=== PATIENT | female | born 1945 | race Caucasian/White ===

== ENCOUNTER 2016-09-18 13:30 | Inpatient (IN) | payer OTHER ==
[~2016-09-18] VITALS: Ht 172 cm; Wt 106.2 kg
--- NOTE | ~2016-09-18 | HC ---
[facility] Lesly [place] [address] CONSULTATION Name: IRISERICH K Room #: 206-P [facility] IN M.R.#: [id number] Admission: 09/18/16 Attend Phys: Nathan Kerr DO Discharge: 09/23/16 Date of : 49 Report #: [id number] THIS REPORT FOR: //name// CC: Yulissa Capellanore Flores DATE OF SERVICE: 09/18/2016 REFERRING PROVIDER: Dr. Jenelle Dorantes. REASON FOR CONSULTATION: Pneumonia. CHIEF COMPLAINT: Shortness of breath. HISTORY OF PRESENT ILLNESS: Our group was asked to see the patient while hospitalized at [facility]. A very pleasant 71-year-old woman with a past pulmonary history she states for COPD, although has negligible symptoms. She states she is able to tolerate riding her stationary bike without any significant dyspnea. Has no chronic cough or congestion. Has no chronic inhaled therapy, quit smoking about 6-7 years ago, had been having some symptoms for the last 6-8 weeks of cough with some sputum production. No hemoptysis. Denied any fevers, chills or sweats. She had some intermittent hoarseness to her voice. Sought care with her primary care provider, was advised it is likely viral and was put on no antimicrobial therapy initially when the patient's symptoms persists despite conservative management with over the counter medication. She was placed on azithromycin course as well as the Medrol Dosepak. Symptoms initially improved, but then recurred and had been persistent. She also has had some orthopnea the past 2 days. No fevers, chills or sweats. In the emergency department, chest x-ray was clear as has been recent past x-rays, however, CT scan of the chest to evaluate for PE did reveal some nodular right greater than left upper lobe infiltrates and has now been on Rocephin and azithromycin as well as systemic steroids, feeling modestly improved. Continues to have some loose cough. No recent travel. No environmental exposures. No animals at home. Otherwise remains reasonably clear. ALLERGIES: Include REMICAINE and PENICILLIN. PAST MEDICAL HISTORY: 1. Anemia. 2. Bovine aortic valve replacement in 2014. 3. Diabetes mellitus type 2. 4. Psoriatic arthritis. 5. History of bilateral cataract surgery. 6. Hypertension. [address] [address] CONSULTATION Name: IRISJOYCEERICH K Room #: 206-[facility]..#: [id number] Admission: 09/18/16 Attend Phys: Nathan Kerr DO Discharge: 09/23/16 Date of : 49 Report #: [id number] 7. Hyperlipidemia. 8. Prior history of hysterectomy. 9. COPD, severity not quantified, however, the patient states she is asymptomatic. 10. Gout. OUTPATIENT MEDICATIONS: Include Alogliptin, simvastatin, clobetasol, Amaryl, insulin, p.r.n. albuterol, aspirin, metformin, Lasix, losartan, allopurinol. SOCIAL HISTORY: Ex-smoker, quitting several years ago. No significant alcohol consumption, lives alone. 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 FAMILY HISTORY: Negative for any significant pulmonary disease. REVIEW OF SYSTEMS: CONSTITUTIONAL: No fevers, chills or sweats. ENT: No upper respiratory congestion, rhinorrhea or dysphagia. CARDIOVASCULAR: No chest pains, palpitations, known history of aortic valve replacement. GASTROINTESTINAL: No nausea, vomiting, diarrhea, constipation, abdominal pain. No reflux. GENITOURINARY: No dysuria, no frequency. INTEGUMENT: Denies any new rash. MUSCULOSKELETAL: Chronic osteoarthritis pain and prior right total knee arthroplasty, complaints of left pain which may require total knee arthroplasty, otherwise tolerating regular exercise on her stationary bike. PHYSICAL EXAMINATION: VITAL SIGNS: Afebrile, pulse 70, respiratory rate 18, blood pressure 124/85, oxygen saturation 95% on 2 liters. GENERAL: This is a pleasant elderly woman in no distress. HEENT: Mallampati 2 airway, no thrush. NECK: Supple, no lymphadenopathy. LUNGS: Diminished with some expiratory wheezes noted. CARDIOVASCULAR: Heart regular, 2/6 systolic murmur, best heard at the left sternal border. ABDOMEN: Obese, soft, nontender, no masses. EXTREMITIES: Warm with trace lower extremity edema. INTEGUMENT: Without rash. LABORATORY DATA: White blood cell count 10,000, hemoglobin 9, hematocrit 29, platelet count 328. Sodium 141, potassium 3.7, chloride 105, bicarbonate 27, BUN 22, creatinine 1.0. Glucose 67. Arterial blood gas performed on room air revealed pH 7.46, pCO2 of 37, pO2 of 68, bicarbonate 25. CT scan of the chest PE protocol reveal no pulmonary emboli. There is bilateral upper lobe nodular [facility] [address] [place] [address] CONSULTATION Name: ERICH SIMMONS Room #: 206-P [facility] IN M.R.#: [id number] Admission: 09/18/16 Attend Phys: Nathan Kerr, Discharge: 09/23/16 Date of : 49 Report #: [id number] interstitial infiltrates as mentioned. IMPRESSION: 1. Upper lobe infiltrate, somewhat nodular in nature, could be community-acquired pneumonia. Given history of psoriatic arthritis, we will also consider the possibility of an autoimmune related process; however, given the productive cough favor an infectious process, doubt any opportunistic infections. 2. History of chronic obstructive pulmonary disease, does not appear to be very severe by history. 3. History of obstructive sleep apnea, noncompliant/intolerant to CPAP. 4. Hypoxemic respiratory failure. SUGGEST: 1. Add flutter valve. 2. Continue with bronchodilators. 3. Continue systemic steroids with taper. 4. Continue with current antimicrobial therapy with Rocephin and azithromycin. 5. Mobilize as able. 6. Sputum for cultures. 7. Sputum for AFB and routine culture. 8. Nasal swab for respiratory viral panel. 9. Urinary pneumococcal legionella antigen test. 10. Consider fiberoptic bronchoscopy if not improving. We will follow along with you. Thank you for requesting our suggestions. <ELECTRONICALLY SIGNED> By: Stiven Bright MD 10/03/16 0903 1708 0006 Stiven Bright MD /nt
--- NOTE | ~2016-09-18 | EKG ---
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[place] : 1945 Requested By: Easton Hobson Order Number: [id number] MD: Javan Proctor Measurements Intervals [place] Rate: 96 P: 102 [place]: 153 QRS: -29 QRSD: 100 T: 81 QT: 332 QTc: 420 Interpretive Statements Sinus rhythm Ventricular premature complex Borderline left axis deviation Abnormal R-wave progression, late transition No previous ECG available for comparison Electronically Signed On 09-20-2016 8:34:24 CARTOON ARTIST by Javan Proctor [email or web address] <ELECTRONICALLY SIGNED> By: Javan Proctor MD, [facility] 09/20/16 0834 1355 1355 Javan Proctor MD, [facility] /EPI
--- NOTE | ~2016-09-18 | HC ---
[facility] [place] [address] CONSULTATION Name: IRISERICH K Room #: 206-P [facility] IN M.R.#: [id number] Admission: 09/18/16 Attend Phys: Nathan Kerr DO Discharge: 09/23/16 Date of : 49 Report #: [id number] THIS REPORT FOR: //name// CC: Yulissa Flores HISTORY OF PRESENT ILLNESS: The patient is a 71-year-old white female admitted with a two month history of shortness of breath. She was noted to have worsening coughing. She was having worsening weakness and overall fatigue. She was diagnosed with pneumonia with hypoxemic respiratory failure. She is noted to have a nodular upper lobe infiltrate with pulmonary medicine involved. CT does not reveal the infiltrate and she thus will need a followup CT in 4-6 weeks. She is noted to have paroxysmal atrial fibrillation with conversion to normal sinus rhythm. Cardiology has been involved with her edema, fluids have been discontinued changing the IV Lasix. She is on antibiotics and corticosteroids with the Pulmonary Medicine involvement. She was having considerable hyperglycemia on the Solu-Medrol with a plan to change to prednisone. She does have medical complexity with generalized debilitation. We are seeing her in rehabilitation medicine consultation. PAST MEDICAL HISTORY: Includes aortic valve replacement in October 2014, right total knee replacement, insulin-dependent diabetic, anemia, psoriatic arthritis, history of gout, bilateral cataract surgery, hypertension, elevated cholesterol. PRIMARY CARE PHYSICIAN: Dr. Flores. LABORER BEAM HOUSE: Dr. Cardoza. CLIENT SUPPORT MANAGER: Dr. Mazariegos. PAST SURGICAL HISTORY: Also includes hysterectomy. MEDICATIONS: Please see the full medication listing. SOCIAL HISTORY: Lives in a condominium alone. She has used a cane or a walker after her surgeries, but prior to the current admission she was not needing to use any gait aids. She was not on any O2. She has one step into her condominium. She was able to do her own ADLs independently. REVIEW OF SYSTEMS: Did not complain of any current chest pain. She does have shortness of breath with limited activity. No abdominal discomfort. Did not offer any complaints of any specific joint aches at this time. ALLERGIES: INFLIXIMAB from REMICADE and PENICILLIN. PHYSICAL EXAMINATION: [address] [address] CONSULTATION Name: ERICH SIMMONS Room #: [facility] IN [facility].#: [id number] Admission: 09/18/16 Attend Phys: Nathan Kerr DO Discharge: 09/23/16 Date of : 49 Report #: [id number] GENERAL: She is a pleasant 71-year-old white female in no obvious distress. VITAL SIGNS: Last recorded temperature 98.4, pulse 84, respirations 20, blood pressure 154/89. The patient is alert, pleasant. HEENT: Appeared to be benign. NEUROLOGIC: Cranial nerves are grossly intact. Facies are symmetric. She is on nasal prong O2 one liter. She is overweight. EXTREMITIES: She has functional range of motion of both upper extremities. Strength is a grade 4-/5. DTRs are trace to 1. Lower extremities, her old knee incision has well healed. There is no focal calf swelling. Functional range of motion with strength to grade 4-/5. DTRs are decreased. Tone appeared to be intact. She does need assistance with functional mobility skills, intense her fatigue fairly quickly. ASSESSMENT: A 71-year-old white female with the following problem list: 1. Medical complexity with generalized debilitation. 2. Hypoxemic respiratory failure. 3. Nodular upper lobe infiltrate. 4. Pneumonia. 5. History of chronic obstructive pulmonary disease. 6. Obstructive sleep apnea intolerant to CPAP. 7. Paroxysmal atrial fibrillation converted into normal sinus rhythm. 8. Hypertension. Cardiology is involved with continuing Losartan. 9. Edema with decreasing fluids and changing the IV Lasix. 10. History of aortic valve replacement. 11. Past right total knee replacement. 12. Insulin-dependent diabetic. 13. History of gout. 14. Psoriatic arthritis. PLAN: Therapy evaluations are underway. She certainly may warrant a short, acute in-hospital inpatient rehabilitation stay. We will need to see how she does in therapies and see what her therapy needs are and be glad to follow along with you. <ELECTRONICALLY SIGNED> By: Lorenzo Medina MD 10/11/16 1617 1600 46 Lorenzo Medina MD /nt
[2016-09-18 13:30] VITALS: BP 118/74
[~2016-09-18 13:30] MED LIST: ALLOPURINOL 10100 M1 PO; AMARYL4 MG PO; ASPIR 8181 MG PO; ASPIRIN EC81 M1 PO; AVANDARYL 4 MG1 EACH PO; BACLOFEN 10MG T10 MG PO; BREO ELLIPTA 11 EACH INH; CENTRUM SILVER1 EAC6 PO; COCONUT OIL100 GM PO; COLACE100 MG PO; COLCHICINE0.6 MG PO; COLCRYS0.6 MG PO; COUMADIN 4 MG TA4 M1 PO; DEEP SEA NASAL44 M1 NASAL; DULERA 100 MCG/13 GM INH; FISH OIL 1,0001 EAC5 PO; GLUCOPHAGE500 MG PO; HUMIRA20 MG/0.4 SQ; HYDROCODON-ACE1 EAC7 PO; IBUPROFEN 200200 M1 PO; KEFLEX500 MG PO; LANTUS PO; LANTUS SUBQ; LASIX 40 MG TAB40 M2 PO; LIPITOR20 MG PO; LOPRESSOR25 PO; LOSARTAN POTASS50 MG PO; MEDROLDOSEPACK PO; MELATONIN1 MG PO; METFORMIN; METFORMIN HCL500 MG PO; MIRALAX17 GM PO; MOBIC7.5 MG PO; MUCINEX DM ER1 EAC1 PO; NORCO 5-325 TA1 EACH PO; NOVOLOG100 UNIT/1; ONGLYZA5 MG PO; PACERONE 200 M200 M1 PO; PAIN RELIEVER325 MG PO; PEPCID20 MG PO; PHENERGAN 25 MG25 M1 PO; POTASSIUM20 PO; PROAIR HFA8.5 GM INH; PROTONIX40 M2 PO; RESTORIL15 MG PO; SIMVASTATIN40 MG PO; SPIRIVA RESPIMAT INH; STELARA90 MG/1 ML SQ; TEMOVATE15 GM TOP; TYLENOL325 MG PO; ULTRAM 50MG TAB50 MG PO; VESICARE 5 MG TA5 M1 PO; ZYLOPRIM300 MG PO; [UNRECOGNIZED DRUG - OTHER]
[2016-09-18] MEDS ORDERED: NESINA25 MG PO (13:55)
[2016-09-18 14:12] LABS: ABSOLUTE NEUTROPHILS 7.3 thou/uL (1.4-8.2); BASOPHILS 0.6 % (0.0-2.0); EOSINOPHILS 0.9 % (0.0-3.0); HEMATOCRIT 29.3 % (37.0-47.0); HEMOGLOBIN 9.5 gm/dL (12.0-15.0); LYMPHOCYTES 15.9 % (24.0-44.0); MANUAL DIFF NO; MCH 24.6 pg (26.0-34.0); MCHC 32.6 % (28.0-37.0); MCV 75.5 fL (80.0-100.0); MONOCYTES 7.2 % (1.0-8.0); PLATELET COUNT 361 thou/uL (150-400); POLYS 75.4 % (36.0-66.0); RBC 3.88 mil/uL (4.20-5.00); RDW 18.5 % (10.5-14.5); WBC 9.7 thou/uL (4.0-11.0)
[2016-09-18 14:14] LABS: ABG SAMPLE TYPE ARTERIAL; BE(vivo) 1.3 mmol/L (-2 to +3); HCO3 25.1 mmol/L (22.0-26.0); LACTATE 1.29 mmol/L (0.5-2.0); O2(CT) 13.2 mL/dL (15.0-23.0); O2Hb 92.4 % (92.0-98.0); PCO2 36.5 mmHg (35.0-45.0); pH 7.455 (7.360-7.450); sO2 94.5 % (92.0-98.0); tCO2 26.2 mmol/L (24.0-30.0)
[2016-09-18 14:15] LABS: STICK SITE R.RADIAL
[2016-09-18 14:20] LABS: ANION GAP 10 mmol/L (7-16); BUN 22 mg/dL (7-18); CHLORIDE 102 mmol/L (98-107); CO2 27 mmol/L (21-32); GLUCOSE 117 mg/dL (70-99); POTASSIUM 4.1 mmol/L (3.5-5.1); SODIUM 139 mmol/L (136-145)
[2016-09-18 14:26] LABS: INR 1.1; PROTIME 11.2 Seconds (9.3-11.4)
[2016-09-18 14:32] LABS: NT-PRO BRAIN NAT PEPTIDE 323 pg/mL (<300); TROPONIN-I < 0.04 ng/mL (<0.04-0.07)
[2016-09-18 15:46] LABS: URINE BILIRUBIN NEGATIVE (Negative); URINE BLOOD NEGATIVE (Negative); URINE COLOR YELLOW; URINE GLUCOSE-RANDOM* NEGATIVE (Negative); URINE KETONES NEGATIVE (Negative); URINE NITRITE NEGATIVE (Negative); URINE PROTEIN (DIPSTICK) NEGATIVE (Negative); URINE UROBILINOGEN 0.2 E.U./dl (0.2-1.0)
[2016-09-18 16:28] VITALS: BP 100/59
[2016-09-18 19:15] VITALS: BP 110/53
[2016-09-19 03:01] LABS: ABSOLUTE NEUTROPHILS 7.2 thou/uL (1.4-8.2); BASOPHILS 0.9 % (0.0-2.0); EOSINOPHILS 1.4 % (0.0-3.0); HEMATOCRIT 29.1 % (37.0-47.0); LYMPHOCYTES 15.2 % (24.0-44.0); MCH 23.9 pg (26.0-34.0); MCHC 30.9 % (28.0-37.0); MCV 77.3 fL (80.0-100.0); MONOCYTES 7.5 % (1.0-8.0); PLATELET COUNT 328 thou/uL (150-400); RBC 3.76 mil/uL (4.20-5.00); RDW 18.6 % (10.5-14.5); WBC 9.6 thou/uL (4.0-11.0)
[2016-09-19 03:03] LABS: MANUAL DIFF NO
[2016-09-19 03:10] LABS: CALCIUM 8.7 mg/dL (8.5-10.1); POTASSIUM 3.7 mmol/L (3.5-5.1)
[2016-09-19 04:10] VITALS: BP 134/62
[2016-09-19 08:34] VITALS: BP 124/84
[2016-09-19 17:21] VITALS: BP 150/80
[2016-09-19 20:22] VITALS: BP 138/69
[2016-09-20 02:47] LABS: HEMATOCRIT 27.6 % (37.0-47.0); HEMOGLOBIN 8.7 gm/dL (12.0-15.0); MCH 24.4 pg (26.0-34.0); MCHC 31.5 % (28.0-37.0); MCV 77.7 fL (80.0-100.0); RBC 3.55 mil/uL (4.20-5.00); RDW 18.3 % (10.5-14.5); WBC 7.2 thou/uL (4.0-11.0)
[2016-09-20 03:35] VITALS: BP 158/85
[2016-09-20 07:10] VITALS: BP 162/123
[2016-09-20 08:10] VITALS: BP 146/65
[2016-09-20 13:35] VITALS: BP 157/73
[2016-09-20 17:11] VITALS: BP 157/73
[2016-09-20 20:27] VITALS: BP 143/70
[2016-09-21 03:13] LABS: HEMATOCRIT 26.5 % (37.0-47.0); MCH 23.7 pg (26.0-34.0); MCHC 30.3 % (28.0-37.0); MCV 78.2 fL (80.0-100.0); RBC 3.4 mil/uL (4.20-5.00); RDW 18.2 % (10.5-14.5); WBC 11.6 thou/uL (4.0-11.0)
[2016-09-21 03:22] LABS: CALCIUM 8.4 mg/dL (8.5-10.1); CREATININE 0.8 mg/dL (0.6-1.3); POTASSIUM 5.1 mmol/L (3.5-5.1)
[2016-09-21 04:00] VITALS: BP 148/64
[2016-09-21 07:24] VITALS: BP 157/83
[2016-09-21 11:36] VITALS: BP 154/89
[2016-09-21 16:57] VITALS: BP 132/63
[2016-09-21 20:26] VITALS: BP 132/66
[2016-09-22 03:36] LABS: HEMATOCRIT 29.2 % (37.0-47.0); HEMOGLOBIN 9.2 gm/dL (12.0-15.0); MCH 24.1 pg (26.0-34.0); MCHC 31.6 % (28.0-37.0); MCV 76.3 fL (80.0-100.0); RBC 3.82 mil/uL (4.20-5.00); RDW 18.5 % (10.5-14.5); WBC 13.4 thou/uL (4.0-11.0)
[2016-09-22 03:54] LABS: CALCIUM 8.6 mg/dL (8.5-10.1); CREATININE 0.9 mg/dL (0.6-1.3); POTASSIUM 5.1 mmol/L (3.5-5.1)
[2016-09-22 05:52] VITALS: BP 149/86
[2016-09-22 08:10] VITALS: BP 149/82
[2016-09-22 11:45] VITALS: BP 124/62
[2016-09-22 16:15] VITALS: BP 123/68
[2016-09-22 20:45] VITALS: BP 175/79
[2016-09-22 21:45] VITALS: BP 139/81
[2016-09-23 03:58] LABS: HEMOGLOBIN 9.2 gm/dL (12.0-15.0); MCHC 31.8 % (28.0-37.0); MCV 75.5 fL (80.0-100.0); RBC 3.84 mil/uL (4.20-5.00); RDW 18.2 % (10.5-14.5); WBC 15.7 thou/uL (4.0-11.0)
[2016-09-23 04:25] LABS: CALCIUM 8.8 mg/dL (8.5-10.1); CREATININE 0.8 mg/dL (0.6-1.3)
[2016-09-23 04:30] VITALS: BP 158/102
[2016-09-23 05:10] VITALS: BP 157/89
[2016-09-23 08:20] VITALS: BP 155/88
[2016-09-23 11:30] VITALS: BP 130/77
[2016-09-23] MEDS ORDERED: CARVEDILOL6.25 MG PO (12:48)
[2016-09-23] MEDS ORDERED: COZAAR100 MG PO (12:48)
[2016-09-23] MEDS ORDERED: LASIX 40 MG TAB40 M1 PO (12:49)
[2016-09-23] MEDS ORDERED: LANTUS100 UNIT/M SUBQ (12:50)
[2016-09-23] MEDS ORDERED: ADVAIR HFA115 MCG/21 INH (12:51)
[2016-09-23] MEDS ORDERED: PREDNISONE 10 M10 MG PO (12:51)
[2016-09-23] MEDS ORDERED: CEFDINIR300 MG PO (12:56)
== END 2016-09-23 15:03 | DRG 871 ==
LOC: ER 13:30 → 2N 15:47 → EROBS 15:47 → 2N 16:41
PROVIDERS: Emergency Medicine; Family Medicine; Hospitalist; Internal Medicine Cardiovascular Disease; Nurse Practitioner Gerontology
DX: A41.9 Sepsis, unspecified organism (principal); J15.9 Unspecified bacterial pneumonia; J96.91 Respiratory failure, unspecified with hypoxia; E78.5 Hyperlipidemia, unspecified; L40.50 Arthropathic psoriasis, unspecified; J44.9 Chronic obstructive pulmonary disease, unspecified; M10.9 Gout, unspecified; I48.0 Paroxysmal atrial fibrillation; E11.65 Type 2 diabetes mellitus with hyperglycemia; Z96.651 Presence of right artificial knee joint; D64.9 Anemia, unspecified; R19.7 Diarrhea, unspecified; I65.29 Occlusion and stenosis of unspecified carotid artery; F41.9 Anxiety disorder, unspecified; Z60.2 Problems related to living alone; G47.33 Obstructive sleep apnea (adult) (pediatric); I10 Essential (primary) hypertension; E78.00 Pure hypercholesterolemia, unspecified; Z90.710 Acquired absence of both cervix and uterus; Z79.899 Other long term (current) drug therapy; Z79.52 Long term (current) use of systemic steroids; Z90.49 Acquired absence of other specified parts of digestive tract; Z88.0 Allergy status to penicillin; Z88.8 Allergy status to other drugs, medicaments and biological substances; Z95.2 Presence of prosthetic heart valve; Z79.2 Long term (current) use of antibiotics; Z98.42 Cataract extraction status, left eye; Z98.41 Cataract extraction status, right eye; Z87.891 Personal history of nicotine dependence; Z91.19 Patient's noncompliance with other medical treatment and regimen; Z79.4 Long term (current) use of insulin; Z79.82 Long term (current) use of aspirin
CPT/HCPCS: 10081

== ENCOUNTER → 2016-10-14 | Outpatient (CLI) | payer OTHER ==
[~2016-10-14] MED LIST changes: +ADVAIR HFA115 MCG/21 INH; +CARVEDILOL6.25 MG PO; +CEFDINIR300 MG PO; +COZAAR100 MG PO; +LANTUS100 UNIT/M SUBQ; +LASIX 40 MG TAB40 M1 PO; +NESINA25 MG PO; +PREDNISONE 10 M10 MG PO
== END ==
LOC: CAT 09:02
DX: R91.1 Solitary pulmonary nodule (principal); J18.9 Pneumonia, unspecified organism

== ENCOUNTER → 2017-01-16 | Outpatient (CLI) | payer OTHER | LOC: CAT 10:11 | DX: J44.9 Chronic obstructive pulmonary disease, unspecified (principal); R91.1 Solitary pulmonary nodule ==

== ENCOUNTER → 2017-03-22 | Outpatient (CLI) | payer OTHER | LOC: MRI 14:38 | DX: M71.22 Synovial cyst of popliteal space [Baker], left knee (principal); M25.462 Effusion, left knee ==

== ENCOUNTER → 2017-04-18 | Outpatient (CLI) | payer OTHER | LOC: GI 09:42 | DX: D64.9 Anemia, unspecified (principal) ==

== ENCOUNTER 2017-06-22 11:04 | Inpatient (IN) | payer OTHER ==
[~2017-06-22] VITALS: Ht 170.2 cm; Wt 99.2 kg
--- NOTE | ~2017-06-22 | HC ---
[facility] [place] [address] CONSULTATION Name: IRISERICH Radha Room #: 418-P [facility] IN M.R.#: [id number] Admission: 06/22/17 Attend Phys: El Cedillo Discharge: Date of : 49 Report #: [id number] THIS REPORT FOR: //name// CC: Lorenzo Cedillo INDICATION: Shortness of breath. HISTORY OF PRESENT ILLNESS: This is a 71-year-old female presenting with increasing dyspnea for the past several days. She noted increasing shortness of air and inability to lay in a supine position. She offers no complaints of angina, fever, chills, nausea or diarrhea. She was evaluated in the ER and treated with Lasix 40 mg times 1. She had significant diuresis and is symptomatically improved. PAST MEDICAL HISTORY: Aortic valve replacement with bioprosthetic in October 2014. History of COPD, diabetes mellitus, hypertension and hypercholesterolemia. History of paroxysmal atrial fibrillation post-aortic valve replacement. Has not had a recurrence. ALLERGIES: PENICILLIN, REMICDE, SULFA. CURRENT MEDICATIONS: At home include allopurinol, aspirin 81 mg, Coreg 6.25 mg twice a day, Lasix on a p.r.n. basis, glimepiride, insulin, losartan 50 mg daily, metformin and simvastatin 40 mg. SOCIAL HISTORY: Denies tobacco use. FAMILY HISTORY: Negative for premature CAD. REVIEW OF SYSTEMS: A full 10-point review of systems performed. Only the pertinent positives and negatives are described in the HPI. PHYSICAL EXAMINATION: VITAL SIGNS: Blood pressure is 140/70, heart rate is 75 beats per minute. GENERAL APPEARANCE: An overweight female in no acute respiratory distress. HEAD AND EYES: Normocephalic. Sclerae anicteric. ENT: Oral mucosa moist. NECK: Supple. LUNGS: Diminished breath sounds at the bases. CARDIAC: Regular rate and rhythm, 2/6 systolic murmur. ABDOMEN: Soft, nontender. Bowel sounds positive. EXTREMITIES: No cyanosis, 1+ bilateral lower extremity edema. NEUROLOGIC: Alert and oriented times 3 ECG reveals sinus rhythm, nonspecific T-wave abnormalities. [facility] [address] [place] [address] CONSULTATION Name: ERICH SIMMONS Room #: 418-P [facility] IN ..#: [id number] Admission: 06/22/17 Attend Phys: El Cedillo Discharge: Date of : 49 Report #: [id number] LABORATORY VALUES: White count is 12.4, hemoglobin is 8.3, sodium is 140, creatinine is 0.8. ProBNP is 4768. IMPRESSION AND PLAN: 1. Congestive heart failure, [id number] diastolic heart failure, it may be related to dietary indiscretion. Would continue with IV Lasix for now. 2. Aortic valve, history of bioprosthetic aortic valve replacement. The last echo revealed normal ejection fraction with moderate stenosis. 3. Hypertension, continue with medications. 4. Diabetes mellitus, continue with insulin and check fingersticks. 5. Hypercholesterolemia, continue with statin therapy. Thank you for allowing me to participate in the care of your patient. <ELECTRONICALLY SIGNED> By: Richard Cardoza MD 06/23/17 0851 1603 1859 Richard Cardoza MD /nt
--- NOTE | ~2017-06-22 | TEE ---
[facility] [address] [place] [address] TRANSESOPHAGEAL ECHOCARDIOGRAM Name: ERICH SIMMONS Room #: 428-P [facility] IN ..#: [id number] Admission: 06/22/17 Attend Phys: El Pérez Discharge: Date of : 49 Date of Service: 06/26/17 1721 Report #: [id number] THIS REPORT FOR: //name// APPROVED REPORT Study performed: 06/26/2017 08:10:29 EXAM: Comprehensive 2D, Doppler, and color-flow Echocardiogram Patient Location: labor relations officer prep Room #: [facility] Status: routine BSA: 2.10 HR: 80 bpm BP: 129/55 mmHg Other Information Study Quality: Good Indications Aortic Valve Disease AVR Echo Enhancing Agent Indication: Rule out Shunt Agent(s) / Amount(s) Used: Agitated Saline 7 cc Aortic Valve AoV Peak Xavi.: 4.46 m/s AO Peak Gr.: 79.74 mmHg AO Mean Gr.: 53.18 mmHg AO V2 Mean: 3.50 m/s AO V2 VTI: 119.47 cm Procedure After obtaining informed consent, patient underwent transesophageal echo in the Rehab Assistant Holding. Type of Sedation : Conscious Sedation Sedation was administered by Jenny Morel RN. Sedation start time: 843 Case end Time: 856 Sedation was achieved intravenously with: Versed (3 mg) Fentanyl (50 mcg) Echo enhancement indication: R/O Septal defect. Echo enhancement agent administered: Agitated Saline The FRANCISCO was performed without complications. [facility] [address] [place] [address] TRANSESOPHAGEAL ECHOCARDIOGRAM Name: ERICH SIMMONS Room #: 428-P [facility] IN ..#: [id number] Admission: 06/22/17 Attend Phys: El Pérez Discharge: Date of : 49 Date of Service: 06/26/17 1721 Report #: [id number] Throughout the procedure, the blood pressure, pulse oximetry, cardiac rhythm, and rate were monitored. The patient tolerated the procedure without adverse effects. Recovery from conscious sedation was uneventful and vital signs were stable. Left Ventricle The left ventricle is normal size. There is normal LV segmental wall motion. Mild concentric left ventricular hypertrophy. Left ventricular systolic function lower limits of normal. LVEF is 50%. Right Ventricle The right ventricle is normal size. The right ventricular systolic function is normal. Atria Left atrium is dilated. No masses or clots in the left atrium or left atrial appendage. No shunting by contrast bubble injection Right atrium is dilated. Aortic Valve Trileaflet, bioprosthetic valve. Resticted mobililty of all three leaflets, especially right and non-coronary cusp leaflets. Abnormal prosthetic aortic valve gradient. Peak gradient 80 mmHg. Mean gradient 53 mmHg. Mild aortic regurgitation. Severe aortic stenosis. Mitral Valve Mild mitral annular calcification Moderate mitral regurgitation. No evidence of mitral valve stenosis. Tricuspid Valve The tricuspid valve is normal in structure. Mild tricuspid regurgitation. Pulmonic Valve The pulmonary valve is normal in structure. Great Vessels The aortic root is normal in size. Pericardium There is no pericardial effusion. <Conclusion> [facility] [address] [place] [address] TRANSESOPHAGEAL ECHOCARDIOGRAM Name: IRISERICH K Room #: 428-P [facility] IN .R.#: [id number] Admission: 06/22/17 Attend Phys: El Pérez Discharge: Date of : 49 Date of Service: 06/26/171720 Report #: [id number] Left ventricular systolic function normal. There is normal LV segmental wall motion. LVEF is 55%. Both atria are dilated. No masses or clots in the left atrium or left atrial appendage. No shunting by contrast bubble injection Trileaflet, bioprosthetic valve. Resticted mobililty of all three leaflets, especially right and non-coronary cusp leaflets. Severe prosthetic valve stenosis. Peak gradient 80 mmHg. Mean gradient 53 mmHg. Mild aortic regurgitation. Mild mitral annular calcification. Moderate mitral regurgitation. There is no pericardial effusion. Minimal aortic atherosclerosis, no aneurysmal dilatation <ELECTRONICALLY SIGNED> By: Javan Proctor MD, [facility] 06/26/171720 20 1721 Javan Proctor MD, FACC /INF
--- NOTE | ~2017-06-22 | CATHLAB ---
[facility] [address] [place] [address] INVASIVE PROCEDURE REPORT Name: IRISERICH K Room #: 428-P ADM IN .R.#: [id number] Admission: 06/22/17 Attend Phys: El Pérez Discharge: Date of : 49 Date of Service: 06/26/171814 Report #: [id number] THIS REPORT FOR: //name// APPROVED REPORT Patient Details Patient Status: In-Patient Room #: The patient is a 71 year-old female Event Personnel Richard Cardoza Airline Radio Operator, Jenaro Keller RN, Lorenzo Reno, Caryn Rios Monitor Procedures Performed Left Heart Cath w/or w/o Coronaries [id number] [facility] Indication CHF Current Status: , Dyspnea, Valvular heart disease Risk Factors Obesity, Hypercholesterolemia, Hypertension Previous Procedures/Diagnoses Previous Valve Surgery Procedure Narrative The Right Groin^ was infiltrated with 1% Lidocaine subcutaneous anesthesia. A PINNACLE 5FR Sheath #[id number] sheath was inserted into the RFA^. Coronary angiography was performed using coronary diagnostic catheters. The right coronary system was accessed and visualized with a JR4 catheter. The left coronary system was accessed and visualized with a 5FR AL1 #[id number] catheter. The left ventricle was accessed and visualized with a 5FR AL1 #[id number] catheter. Left ventricular/Aortic Valve gradient assessed . The patient tolerated the procedure well and there were no complications associated with the procedure. Intraoperative Conscious Sedation Sedation start time: 11:52 Case end Time: 12:22 Fentanyl 50.0 mcg Versed 2.0 mg Fluoro Time: 6.30 minutes Dose: DAP 7916.40 cGycm2 950 mGy Contrast Type and Amount: Visipaque [address] [facility] [address] [place] [address] INVASIVE PROCEDURE REPORT Name: ERICH SIMMONS Room #: 428-P [facility] IN [facility].#: [id number] Admission: 06/22/17 Attend Phys: El Pérez Discharge: Date of : 49 Date of Service: 06/26/17 1815 Report #: [id number] Coronary Angiography The patient's coronary anatomy is co- dominant. Diagnostic Cath Left Main Patent vessel, no flow limiting lesions LAD Mild disease in the proximal segment, 30%. The distal segment wraps around the apex. Circumflex Codominant vessel with mild disease in the proximal and mid segments. OM1 Patent vessel, no flow limiting lesions OM2 No flow-limiting lesions Right Coronary Mild disease in the mid segment, less than 20% Left Ventriculography Left Ventriculography was not performed. An LVEDP and gradient across the LVOT was measured, a ventriculogram was not performed. Hemodynamics The aortic pressure is 121/57 mmHg with a mean of 82 mmHg. The left ventricular pressure is 174/15 mmHg with a mean of mmHg. The left ventricular end diastolic pressure is 36 mmHg. Pullback from the left ventricle to the aorta revealed a mm gradient across the aortic valve. Conclusion 1. Mild, nonobstructive CAD. 2. Severe aortic stenosis. Recommendations Valve Surgery <ELECTRONICALLY SIGNED> By: Richard Cardoza MD 06/26/171814 14 14 Richard Cardoza MD /INF
--- NOTE | ~2017-06-22 | EKG ---
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
--- NOTE | ~2017-06-22 | 2DMMODE ---
[facility] [address] [place] [address] 2 D/M-MODE ECHOCARDIOGRAM Name: ERICH SIMMONS Room #: 418-P [facility] IN .R.#: [id number] Admission: 06/22/17 Attend Phys: El Pérez Discharge: Date of : 49 Date of Service: 06/22/17 1613 Report #: [id number] THIS REPORT FOR: //name// APPROVED REPORT Study performed: 06/22/2017 14:30:45 EXAM: Comprehensive 2D, Doppler, and color-flow Echocardiogram Patient Location: Bedside Room #: [facility] Status: routine BSA: 2.11 HR: 73 bpm BP: 137/73 mmHg Rhythm: NSR Other Information Study Quality: Adequate Indications Acute systolic heart failure. SOA, cough. Hx: Aortic valve replacement, HTN, HLP, DM, obesity 2D Dimensions RVDd: 45.55 mm LVEF(%): 35.69 (>50%) IVSd: 13.43 (7-11mm) LVOT Diam: 21.45 (18-24mm) LVDd: 53.55 mm PWd: 12.79 (7-11mm) Ascending Ao: 29.00 (22-36mm) LVDs: 44.31 (25-40mm) Aortic Root: 27.80 mm Zuñiga's LVEF: 35.69 % Volumes Left Atrial Volume (Systole) Single Plane 4CH: 87.81 mL Single Plane 2CH: 88.99 mL LA ESV Index: 45.00 mL/m2 Aortic Valve AoV Peak Xavi.: 4.45 m/s AO Peak Gr.: 79.14 mmHg LVOT Max P.19 mmHg AO Mean Gr.: 52.10 mmHg AO V2 Mean: 3.48 m/s LVOT Max V: 1.02 m/s AO V2 VTI: 110.91 cm PADMNII Vmax: 0.83 cm2 [facility] [place] [address] 2 D/M-MODE ECHOCARDIOGRAM Name: ERICH SIMMONS Room #: 418-P [facility] IN ..#: [id number] Admission: 06/22/17 Attend Phys: El Pérez Discharge: Date of : 49 Date of Service: 06/22/17 1613 Report #: [id number] Mitral Valve E/A Ratio: 1.5 MV Decel. Time: 152.64 ms MV E Max Xavi.: 1.67 m/s MV A Xavi.: 1.08 m/s MV PHT: 44.27 ms Pulmonary Valve PV Peak Xavi.: 1.05 m/s PV Peak Gr.: 4.42 mmHg Pulmonary Vein P Vein S: 0.55 m/s P Vein D: 0.73 m/s P Vein S/D Ratio: 0.75 Tricuspid Valve TR Peak Xavi.: 2.83 m/s RAP Estimate: 10.00 mmHg TR Peak Gr.: 32.00 mmHg PA Pressure: 42.00 mmHg Left Ventricle The left ventricle is normal size. There is normal LV segmental wall motion. Mild concentric left ventricular hypertrophy. Left ventricular systolic function is at the lower limits of normal. LVEF is 50%. Grade II diastolic dysfunction Right Ventricle The right ventricle is normal size. The right ventricular systolic function is low normal. Atria Left atrium is moderately dilated. Right atrium is at the upper limits of normal. Aortic Valve A #21 John bioprosthetic aortic valve is present. Peak velocity of 4.5m/s with a peak gradient of 79mmHg and a mean of 52mmHg. Mild aortic regurgitation. Severe aortic stenosis. Mitral Valve Mitral valve leaflets are mildly thickened. Mild mitral annular calcification. Moderate to severe mitral regurgitation No evidence of mitral valve stenosis. Tricuspid Valve The tricuspid valve is normal in structure. Mild to moderate [facility] [address] [place] [address] 2 D/M-MODE ECHOCARDIOGRAM Name: ERICH SIMMONS Room #: 418-P [facility] IN ..#: [id number] Admission: 06/22/17 Attend Phys: El Pérez Discharge: Date of : 49 Date of Service: 06/22/17 1613 Report #: [id number] tricuspid regurgitation. Estimated PAP is 42mmHg. Pulmonic Valve The pulmonary valve is normal in structure. Trace pulmonic regurgitation. Great Vessels The aortic root is normal in size. The ascending aorta is normal in size. IVC is dilated and collapses >50% with inspiration. Pericardium There is no pericardial effusion. <Conclusion> Left ventricular systolic function is at the lower limits of normal. There is normal LV segmental wall motion. LVEF is 50%. Grade II diastolic dysfunction Left atrium is moderately dilated. A #21 John bioprosthetic aortic valve is present and severely stenotic. Peak velocity of 4.5m/s with a peak gradient of 79mmHg and a mean of 52mmHg. Mild aortic regurgitation. Mitral valve leaflets are mildly thickened.Mild mitral annular calcification. Moderate to moderately severe mitral regurgitation. Pulmonary artery pressure of 42mmHg. There is no pericardial effusion. <ELECTRONICALLY SIGNED> By: Javan Proctor MD, FACC 06/22/17 1613 161 [id number] Javan Proctor MD, FACC /INF
[2017-06-22 11:05] VITALS: BP 155/69
[2017-06-22 11:30] LABS: CALCIUM 8.9 mg/dL (8.5-10.1); CREATININE 0.8 mg/dL (0.6-1.0); POTASSIUM 4.8 mmol/L (3.5-5.1)
[2017-06-22 11:31] LABS: ABG SAMPLE TYPE ARTERIAL; BE(vivo) 1.6 mmol/L (-2 to +3); HCO3 25.4 mmol/L (22.0-26.0); O2(CT) 11.2 mL/dL (15.0-23.0); PCO2 36.6 mmHg (35.0-45.0); PO2 52.5 mmHg (80.0-100.0); STICK SITE R.RADIAL; pH 7.459 (7.360-7.450); sO2 89.1 % (92.0-98.0); tCO2 26.5 mmol/L (24.0-30.0)
[2017-06-22 12:19] LABS: HEMOGLOBIN 8.3 gm/dL (12.0-15.0); WBC 12.4 thou/uL (4.0-11.0)
[2017-06-22 12:21] LABS: HEMATOCRIT 26.6 % (37.0-47.0); MCH 22.3 pg (26.0-34.0); MCHC 31.1 g/dL (28.0-37.0); MCV 71.7 fL (80.0-100.0); PLATELET COUNT 312 thou/uL (150-400); RBC 3.72 mil/uL (4.20-5.00)
[2017-06-22 12:22] LABS: MANUAL DIFF YES
[2017-06-22 12:39] LABS: ABSOLUTE NEUTROPHILS 10.4 thou/uL (1.4-8.2); ANISOCYTOSIS 2+; HYPOCHROMASIA 2+; MICROCYTES 1+; PLATELET ESTIMATE NORMAL; TOTAL CELL COUNT 100
[2017-06-22 13:32] VITALS: BP 137/63
[2017-06-22 14:07] VITALS: BP 154/52
[2017-06-22 19:33] VITALS: BP 107/68
[2017-06-23 03:00] VITALS: BP 142/48
[2017-06-23 06:59] LABS: ALBUMIN 2.8 g/dL (3.4-5.0); ANION GAP 10 mmol/L (7-16); BUN 24 mg/dL (7-18); CALCIUM 8.8 mg/dL (8.5-10.1); CHLORIDE 102 mmol/L (98-107); CO2 28 mmol/L (21-32); GLUCOSE 61 mg/dL (74-106); PHOSPHORUS 4.7 mg/dL (2.5-4.9); SODIUM 140 mmol/L (136-145); TROPONIN-I < 0.04 ng/mL (<0.04-0.07)
[2017-06-23 07:22] VITALS: BP 154/61
[2017-06-23 15:56] VITALS: BP 142/56
[2017-06-23 20:50] VITALS: BP 155/61
[2017-06-24 03:48] VITALS: BP 126/56
[2017-06-24 06:18] LABS: ALBUMIN 2.5 g/dL (3.4-5.0); CALCIUM 8.6 mg/dL (8.5-10.1); CREATININE 1.3 mg/dL (0.6-1.0); PHOSPHORUS 5.6 mg/dL (2.5-4.9)
[2017-06-24 07:49] VITALS: BP 147/53
[2017-06-24 15:59] VITALS: BP 115/37
[2017-06-24 19:51] VITALS: BP 155/41
[2017-06-25 04:11] VITALS: BP 140/81
[2017-06-25 07:02] LABS: CALCIUM 8.5 mg/dL (8.5-10.1); CREATININE 1.1 mg/dL (0.6-1.0); POTASSIUM 4.4 mmol/L (3.5-5.1)
[2017-06-25 08:05] VITALS: BP 148/63
[2017-06-25 16:38] VITALS: BP 108/26
[2017-06-25 20:28] VITALS: BP 142/54
[2017-06-26 03:12] VITALS: BP 141/49
[2017-06-26 03:17] VITALS: BP 137/93
[2017-06-26 06:39] LABS: CALCIUM 8.8 mg/dL (8.5-10.1); CREATININE 1.1 mg/dL (0.6-1.0); POTASSIUM 4.8 mmol/L (3.5-5.1)
[2017-06-26 07:53] VITALS: BP 129/55
[2017-06-26 15:30] VITALS: BP 99/85
[2017-06-26 19:10] VITALS: BP 140/65
[2017-06-26 23:27] VITALS: BP 103/58
[2017-06-27 03:59] VITALS: BP 147/63
[2017-06-27 06:27] LABS: HEMOGLOBIN 7.7 gm/dL (12.0-15.0); MCH 21.9 pg (26.0-34.0); MCHC 30.6 g/dL (28.0-37.0); MCV 71.7 fL (80.0-100.0); RBC 3.49 mil/uL (4.20-5.00); RDW 19.3 % (10.5-14.5); WBC 7.9 thou/uL (4.0-11.0)
[2017-06-27 06:33] LABS: CALCIUM 9.1 mg/dL (8.5-10.1); CREATININE 0.9 mg/dL (0.6-1.0); POTASSIUM 4.9 mmol/L (3.5-5.1)
[2017-06-27 07:30] VITALS: BP 152/54
[2017-06-27] MEDS ORDERED: NESINA25 MG PO (11:18)
[2017-06-27] MEDS ORDERED: COZAAR100 MG PO (11:18)
[2017-06-27] MEDS ORDERED: CENTRUM SILVER1 EAC6 PO (11:18)
[2017-06-27] MEDS ORDERED: LANTUS100 UNIT/M SUBQ (11:18)
[2017-06-27] MEDS ORDERED: PROAIR HFA8.5 GM INH (11:18)
[2017-06-27] MEDS ORDERED: LASIX 40 MG TAB40 M1 PO (11:18)
[2017-06-27] MEDS ORDERED: METFORMIN HCL500 MG PO (11:18)
[2017-06-27] MEDS ORDERED: MIRALAX17 GM PO (11:18)
[2017-06-27] MEDS ORDERED: ASPIR 8181 MG PO (11:18)
[2017-06-27] MEDS ORDERED: ZYLOPRIM300 MG PO (11:18)
[2017-06-27] MEDS ORDERED: SIMVASTATIN40 MG PO (11:18)
[2017-06-27] MEDS ORDERED: CARVEDILOL6.25 MG PO (11:18)
[2017-06-27] MEDS ORDERED: PAXIL10 MG (15:51)
[2017-06-27] MEDS ORDERED: NIFEREX TABLET1 EACH (15:51)
== END 2017-06-27 16:10 | DRG 286 ==
LOC: ER 11:04 → EROBS 12:44 → 4E 12:44
PROVIDERS: Emergency Medicine; Hospitalist; Internal Medicine Cardiovascular Disease
PROC: B2151ZZ Fluoroscopy of Left Heart using Low Osmolar Contrast (ICD-10-PCS; principal; 2017-06-26)
PROC: 4A023N7 Measurement of Cardiac Sampling and Pressure, Left Heart, Percutaneous Approach (ICD-10-PCS; principal; 2017-06-26)
PROC: B2111ZZ Fluoroscopy of Multiple Coronary Arteries using Low Osmolar Contrast (ICD-10-PCS; principal; 2017-06-26)
DX: I11.0 Hypertensive heart disease with heart failure (principal); J96.01 Acute respiratory failure with hypoxia; I50.43 Acute on chronic combined systolic (congestive) and diastolic (congestive) heart failure; E11.9 Type 2 diabetes mellitus without complications; L40.50 Arthropathic psoriasis, unspecified; M10.9 Gout, unspecified; D64.9 Anemia, unspecified; I25.10 Atherosclerotic heart disease of native coronary artery without angina pectoris; J44.9 Chronic obstructive pulmonary disease, unspecified; I08.0 Rheumatic disorders of both mitral and aortic valves; I48.0 Paroxysmal atrial fibrillation; E78.00 Pure hypercholesterolemia, unspecified; E66.9 Obesity, unspecified; Z68.34 Body mass index [BMI] 34.0-34.9, adult; Z90.710 Acquired absence of both cervix and uterus; Z95.2 Presence of prosthetic heart valve; Z90.49 Acquired absence of other specified parts of digestive tract; Z98.42 Cataract extraction status, left eye; Z87.01 Personal history of pneumonia (recurrent); Z98.41 Cataract extraction status, right eye; Z79.4 Long term (current) use of insulin; Z79.82 Long term (current) use of aspirin; Z23 Encounter for immunization; Z79.84 Long term (current) use of oral hypoglycemic drugs; Z79.899 Other long term (current) drug therapy; Z88.0 Allergy status to penicillin; Z88.2 Allergy status to sulfonamides; Z88.8 Allergy status to other drugs, medicaments and biological substances
CPT/HCPCS: 10183

== ENCOUNTER → 2017-08-09 | Outpatient (CLI) | payer OTHER ==
[~2017-08-09] MED LIST changes: +ALLOPURINOL 30300 M1 PO; +CARVEDILOL6.25 MG; +COUMADIN 5 MG TA5 M1 PO; +DIGOXIN250 MCG PO; +HUMALOG MI100 UNIT/1 SUBQ; +HUMALOG MI100 UNIT/6 SUBQ; +LASIX 40 MG TAB40 M1 IV; +LOPRESSOR50 PO; +LOSARTAN POTAS100 MG PO; +NIFEREX TABLET1 EACH; +NIFEREX TABLET1 EACH PO; +PAXIL10 MG; +UNICOMPLEX M TA1 TA1 PO
== END ==
LOC: RAD 07:37
DX: J90 Pleural effusion, not elsewhere classified (principal); I51.7 Cardiomegaly; Z95.2 Presence of prosthetic heart valve

== ENCOUNTER → 2017-08-15 | Outpatient (CLI) | payer OTHER ==
[~2017-08-15] MED LIST changes: +ALBUTEROL2.5 MG/31 INH; +COZAAR 50 MG TA50 M2 PO; +ELIQUIS5 MG PO; +LEVEMIR FL100 UNIT/2 SUBQ; +LIPITOR 20 MG T20 M1 PO; +SALINE NASAL SP30 ML NASAL
--- NOTE | ~2017-08-15 | CNG ---
[facility] [place] [address] CYTO-NONGYN REPORT PROCEDURE Name: ERICH RAMIREZ Room #: REG Jared Cuellar#: [id number] Admission: 08/15/17 Date of : 49 Discharge: Report #: [id number] Path Case #: [id number] CYTOPATHOLOGY REPORT COLLECTION DATE: 08/15/2017 RECEIVED DATE: 08/15/2017 SUBMITTING PHYS: Kellie Jackson, PRESIDENT [facility] OTHER PHYS: Dr. Lorenzo Burnham CLINICAL HISTORY: Left pleural effusion SPECIMEN(S) RECEIVED: A.Pleural fluid,Left * * * * * * * * * * * * FINAL DIAGNOSIS: A. Pleural fluid,Left: - No malignant epithelial cells identified. Paucicellular specimen with occasional mesothelial cells, blood and peripheral blood elements, including acute and chronic inflammatory cells, are identified. PATHOLOGIST: Lexy Liao M.D. REPORT ELECTRONICALLY SIGNED BY: Lexy Liao M.D. DATE/TIME: 08/16/2017 11:57 * * * * * * * * * * * * GROSS PATHOLOGY: A. Pleural fluid,Left: The specimen is submitted unfixed, labeled "Erich Ramirez". Received by the Cytology Department is 35 mL of bloody fluid. One ThinPrep slide and a formalin fixed cell block were prepared. ( 08.15.2017) DECAL APPLIER(S): AQUILES Lawrence([facility]) INITIAL CPT CODE(S): A; 54338, 41044 Professional services performed by [facility] at [facility] [address], [place] [address] Technical services performed by [facility] at [address] [place] [address]., [address], [place] [address]. [facility] [address] [place] [address], [address] [facility] [address] [place] [address] CYTO-NONGYN REPORT PROCEDURE Name: ERICH RAMIREZ Room #: REG ULISES Nj#: [id number] Admission: 08/15/17 Date of : 49 Discharge: Report #: [id number] Path Case #: [id number] [place] [id number] PHONE: [phone] DIRECTOR: Phi Avila M.D. * * * END OF REPORT * * *
[2017-08-15 09:27] LABS: APTT 29.3 Seconds (24.5-32.8); PROTIME 10.7 Seconds (9.3-11.4)
[2017-08-15 10:53] LABS: CLARITY TURBID; COLOR DARK RED; MANUAL DIFF YES; TOTAL VOLUME 60 mL
[2017-08-15 11:10] LABS: BF NUCLEATED CELLS 9823; BF RBC 571623
[2017-08-15 12:26] LABS: BF NEUTROPHILS 73
[2017-08-15 12:27] LABS: BF MACROPHAGE 0
[2017-08-16 11:11] LABS: BODY FLUID ALBUMIN 2.2 g/dL (()); BODY FLUID AMYLASE 40 U/L (()); BODY FLUID GLUCOSE 23 mg/dL (()); BODY FLUID LDH 1003 IU/L (()); BODY FLUID PROTEIN 3.7 g/dL (())
== END | disposition home or self-care (01) ==
LOC: ULTRA 08-14 12:18
PROVIDERS: Nurse Practitioner
DX: J90 Pleural effusion, not elsewhere classified (principal)

== ENCOUNTER → 2017-08-16 | Outpatient (CLI) | payer OTHER ==
[~2017-08-16] MED LIST changes: -ALBUTEROL2.5 MG/31 INH; -COZAAR 50 MG TA50 M2 PO; -ELIQUIS5 MG PO; -LEVEMIR FL100 UNIT/2 SUBQ; -LIPITOR 20 MG T20 M1 PO; -SALINE NASAL SP30 ML NASAL
== END ==
LOC: CAT 16:04
DX: R09.02 Hypoxemia (principal); R06.02 Shortness of breath; R59.1 Generalized enlarged lymph nodes; I50.32 Chronic diastolic (congestive) heart failure; Z95.2 Presence of prosthetic heart valve